=== PATIENT | male | born 1960 | race Caucasian/White ===

== ENCOUNTER 2016-12-13 05:28 | Day surgery (SDC) | payer MEDICAID ==
[~2016-12-13] VITALS: Ht 170.2 cm; Wt 103.0 kg
[~2016-12-13 05:28] MED LIST: ASPI325T2; LOPHC2; LOSA25TA3; RISP3 PO; WARF1TAB10
[2016-12-13] MEDS ORDERED: LACTATED RINGERS 1,000 ML IV SCH (06:40)
[2016-12-13] MEDS ORDERED: METO-298 PO (07:00)
[2016-12-13] MEDS ORDERED: LOSA100T14 PO (07:00)
[2016-12-13] MEDS ORDERED: DOCU-150 PO (07:03)
[2016-12-13] MEDS ORDERED: RIVA20TA PO (07:03)
[2016-12-13] MEDS ORDERED: CLOT15CR2 TP (07:03)
[2016-12-13] MEDS ORDERED: NITR100C2 PO (07:03)
[2016-12-13] MEDS ORDERED: FLUT9.9S NS (07:08)
[2016-12-13] MEDS ORDERED: IOPAMIDOL 20 ML VIAL IT ONE (07:17)
[2016-12-13] MEDS ORDERED: ALEN70TA13 PO (07:20)
[2016-12-13] MEDS ORDERED: MIDAZOLAM HCL 2 MG/2 ML VIAL ONE (07:46)
[2016-12-13] MEDS ORDERED: LIDOCAINE HCL 1% 20ML VIAL (Pyxis) INJ ONE (07:52)
[2016-12-13] MEDS ORDERED: PROPOFOL 200MG/20ML VIAL IV ONE (07:52)
[2016-12-13] MEDS ORDERED: FENTANYL CITRATE/PF 50MCG/ML 2ML VIAL ONE (07:58)
[2016-12-13] MEDS ORDERED: CEFAZOLIN SODIUM 1000MG/VIAL ONE (07:59)
[2016-12-13] MEDS ORDERED: EPHEDRINE SULFATE 50MG/ML VIAL ONE (08:22)
[2016-12-13] MEDS ORDERED: ONDANSETRON HCL 4MG/2ML VIAL ONE (08:24)
[2016-12-13] MEDS ORDERED: SODIUM CHLORIDE 0.9% 1,000 ML IV SCH (08:40)
[2016-12-13] MEDS ORDERED: HYDROMORPHONE HCL/PF 2MG/ML CPJ IV PRN (08:45)
[2016-12-13] MEDS ORDERED: MIDAZOLAM HCL 5 MG/5 ML VIAL IV PRN (08:45)
[2016-12-13] MEDS ORDERED: ONDANSETRON HCL 4MG/2ML VIAL IV PRN (08:45)
== END 2016-12-13 10:15 | disposition home or self-care (01) ==
LOC: OR 05:28
PROVIDERS: ATTEND Urology
DX: N20.1 Calculus of ureter (principal); N39.0 Urinary tract infection, site not specified; I10 Essential (primary) hypertension; E66.01 Morbid (severe) obesity due to excess calories
CPT/HCPCS: 52353; 74420; 82360; 88300; C1769; J0171; J0690; J2250; J2405; J3010; J3490; J7120; Q9966; J2704

== ENCOUNTER 2018-08-23 09:37 | Day surgery (SDC) | payer MEDICAID ==
[~2018-08-23] VITALS: Ht 170.2 cm; Wt 91.6 kg
[~2018-08-23 09:37] MED LIST changes: +ALEN70TA46 PO; +ASPI-986; -ASPI325T2; +CLOT15CR2 TP; +DOCU-150 PO; +FLUT9.9S NS; +LOSA100T14 PO; -LOSA25TA3; +METO-385 PO; +NITR100C PO; +RIVA20TA PO; -WARF1TAB10
[2018-08-23] MEDS ORDERED: SODIUM CHLORIDE 0.9% 1,000 ML IV SCH ×3 (10:10→11:14)
[2018-08-23 10:32] LABS: BASOPHILS % 0.5 % (0.0-2.0); EOSINOPHILS % 1.3 % (0.0-5.0); HEMATOCRIT. 41.9 % (42.0-52.0); HEMOGLOBIN. 13.8 g/dL (14.0-18.0); MEAN CORPUSCULAR VOLUME 82.3 fL (80.0-94.0); MEAN PLATELET VOLUME 7.8 fl (7.4-10.4); MONOCYTES % 5.6 % (2.0-8.0); NEUTROPHILS % 80.6 % (40.0-76.0); PLATELET 354 x1000/uL (130-400); RED BLOOD CELL COUNT 5.09 mill/uL (4.7-6.1)
[2018-08-23 10:43] LABS: CHLORIDE 105 mEq/L (98-107)
[2018-08-23] MEDS ORDERED: SODIUM CHLORIDE 0.9% 1,000 ML IV ONE (11:05)
[2018-08-23] MEDS ORDERED: MIDAZOLAM HCL 5 MG/5 ML VIAL ONE (11:07)
[2018-08-23] MEDS ORDERED: PROPOFOL 200MG/20ML VIAL IV ONE (11:07)
[2018-08-23] MEDS ORDERED: LIDOCAINE HCL/PF 1% 10 MG/ML 5ML VIAL ONE (11:11)
[2018-08-23] MEDS ORDERED: ONDANSETRON HCL 4MG/2ML INJ IV PRN (11:15)
[2018-08-23] MEDS ORDERED: HYDROMORPHONE HCL/PF 2MG/ML CPJ IV PRN (11:15)
[2018-08-23] MEDS ORDERED: INSLIS SUBCUT (11:47)
[2018-08-23] MEDS ORDERED: ATOR20TA PO (11:47)
[2018-08-23] MEDS ORDERED: METO-385 PO (11:47)
[2018-08-23] MEDS ORDERED: AMLO10TA80 PO (11:47)
[2018-08-23] MEDS ORDERED: INSU100I24 SQ (11:47)
== END 2018-08-23 13:30 | disposition home or self-care (01) ==
LOC: OR 09:37
PROVIDERS: ATTEND Internal Medicine Gastroenterology
DX: Z09 Encounter for follow-up examination after completed treatment for conditions other than malignant neoplasm (principal); K57.30 Diverticulosis of large intestine without perforation or abscess without bleeding; K64.8 Other hemorrhoids; E11.9 Type 2 diabetes mellitus without complications; E66.3 Overweight; I10 Essential (primary) hypertension; Z98.890 Other specified postprocedural states; Z88.8 Allergy status to other drugs, medicaments and biological substances; Z86.010 Personal history of colon polyps
CPT/HCPCS: 36415; 45378; 80048; 82962; 85025; 93005; J2250; J3490; J2704; J7040

== ENCOUNTER → 2022-02-23 | Day surgery (SDC) | payer MEDICAID ==
[~2022-02-23] VITALS: Ht 170.2 cm; Wt 90.7 kg
[~2022-02-23] MED LIST changes: -ALEN70TA46 PO; +ALEN70TA79 PO; +AMLO10TA80 PO; -ASPI-986; +ATOR20TA PO; +BUPIVACAINE HCL 0.5% (5MG/ML) 50ML ONE; -CLOT15CR2 TP; +CLOT15CR27 TP; +FENTANYL CITRATE/PF 50MCG/ML 2ML VIAL ONE; +HYDR12.518 MT; +HYDR25TA PO; +HYDROMORPHONE HCL/PF 2MG/ML CPJ IV PRN; +INSLIS SUBCUT; +INSU100I24 SQ; +LABETALOL 5MG/ML SYR 20 MG/4 ML SYRINGE IV PRN; -LOPHC2; -LOSA100T14 PO; +LOSA100T32 PO; +MEPERIDINE HCL/PF 25MG/ML CPJ IV PRN; +METF-416 PO; +METF-873 PO; +MIDAZOLAM HCL 2 MG/2 ML VIAL ONE; -NITR100C PO; +ONDANSETRON HCL 4MG/2ML INJ IV PRN; +PROPOFOL 200MG/20ML VIAL IV ONE; +RISP1TAB97 PO; -RISP3 PO; +SKIN ADHESIVE 0.7 GM EA TOP ONE; +SODIUM CHLORIDE 0.9% 1,000 ML IV SCH
== END | disposition home or self-care (01) ==
LOC: OR 07:01
PROVIDERS: ATTEND Surgery
DX: K43.9 Ventral hernia without obstruction or gangrene (principal); I10 Essential (primary) hypertension; E11.9 Type 2 diabetes mellitus without complications; M81.0 Age-related osteoporosis without current pathological fracture; Z79.84 Long term (current) use of oral hypoglycemic drugs; Z79.899 Other long term (current) drug therapy; Z98.890 Other specified postprocedural states; Z20.822 Contact with and (suspected) exposure to COVID-19
CPT/HCPCS: 49560; 49568; 82962; 87426; 88302; C1781; C9803; J1170; J2250; J2704; J3010; J3490